=== PATIENT | female | born 1960 | race Caucasian/White ===

== ENCOUNTER 2018-07-11 14:04 | Outpatient (CLI) | payer BC | END 2018-07-11 14:05 | disposition home or self-care (01) | LOC: BICMAMMO 14:04 | PROVIDERS: ATTEND Student in an Organized Health Care Education/Training Program | DX: Z12.31 Encounter for screening mammogram for malignant neoplasm of breast (principal); R92.1 Mammographic calcification found on diagnostic imaging of breast; Z80.3 Family history of malignant neoplasm of breast | CPT/HCPCS: 77063; 77067 ==

== ENCOUNTER 2018-07-17 10:01 | Outpatient (CLI) | payer BC ==
--- NOTE | 2018-07-17 13:38 | MRI ---
MRI CERVICAL SPINE WITHOUT CONTRAST: Comparison: None. History: Left hand numbness and neck pain for six weeks. Technique: Multiplanar, multisequence MRI images were obtained of the cervical spine without contrast . FINDINGS: There is straightening of the normal cervical lordosis. Generalized disc desiccation is seen. Endplat e degenerative changes are seen surrounding the C6-7 intervertebral disc. The visualized cord demonstrates normal signal throughout. The craniocervical junction is unremarkabl e. The prevertebral and paraspinal soft tissues are unremarkable. C2-3: Unremarkable. C3-4: Unremarkable. C4-5: A small disc osteophyte complex is seen. Mild bilateral posterior facet arthrosis. Mild central canal stenosis. Mild bilateral neural foraminal stenosis. C5-6: A moderate disc osteophyte complex is seen. Mild bilateral posterior facet arthrosis. Mild cent ral canal stenosis. Moderate bilateral neural foraminal stenosis. C6-7: A moderate disc osteophyte complex is associated with a superimposed central protrusion. Mild b ilateral posterior facet arthrosis. Moderate central canal stenosis with flattening of the anterior c ord. Mild to moderate bilateral neural foraminal stenosis. C7-T1: Unremarkable. IMPRESSION: Degenerative changes of the cervical spine as above. POS: [facility]
== END 2018-07-17 10:02 | disposition home or self-care (01) ==
LOC: TBSIIMAG 10:01
PROVIDERS: ATTEND Neurological Surgery
DX: M47.22 Other spondylosis with radiculopathy, cervical region (principal)
CPT/HCPCS: 72141

== ENCOUNTER 2018-07-19 13:29 | Outpatient (CLI) | payer BC ==
[2018-07-19 15:23] LABS: Hemoglobin 17.5 g/dL (12.0-16.0); Mean Corpuscular Hemoglobin 32.9 pg (27.0-31.0); Mean Corpuscular Volume 96.6 fL (78.0-98.0); Mean Platelet Volume 7.8 fL (7.4-10.4); Platelet Count 291 thou/uL (130-400); RBC Distribution Width 11.2 % (11.5-14.5); Red Blood Cell (RBC) Count 5.34 mill/uL (4.20-5.40); White Blood Cell (WBC) Count 10.7 thou/uL (4.8-10.8)
[2018-07-19 15:38] LABS: Anion Gap 13 mmol/L (10-20); BUN (Urea Nitrogen) 21 mg/dL (9.8-20.1); Calc. Creatinine Clearance 0 mL/min (70-130); Calcium 9.6 mg/dL (7.8-10.44); Carbon Dioxide 26 mmol/L (22-29); Chloride 101 mmol/L (98-107); Estimated GFR-MDRD 71; Glucose 129 mg/dL (70-105); Potassium 3.8 mmol/L (3.5-5.1); Sodium 136 mmol/L (136-145)
--- NOTE | 2018-07-22 11:53 | EKG ---
Test Reason : Blood Pressure : / mmHG Vent. Rate : 061 BPM Atrial Rate : 061 BPM P-R Int : 166 ms QRS Dur : 092 ms QT Int : 418 ms P-R-T Axes : 014 041 039 degrees QTc Int : 420 ms Normal sinus rhythm RSR' or QR pattern in V1 suggests right ventricular conduction delay Cannot rule out Anterior infarct , age undetermined Abnormal ECG Confirmed by NITIN BALDERRAMA ([id number]) on 07/22/2018 11:53:39 AM Referred By: FREDY Confirmed By:NITIN BALDERRAMA
== END 2018-07-19 13:30 | disposition home or self-care (01) ==
LOC: LABBT 13:29
PROVIDERS: ATTEND Neurological Surgery
DX: Z01.818 Encounter for other preprocedural examination (principal); M54.12 Radiculopathy, cervical region
CPT/HCPCS: 80048; 85027; 93005; 93010

== ENCOUNTER 2018-07-22 06:46 | Day surgery (SDC) | payer BC ==
[2018-07-19 14:02] VITALS: BMI 34.4
[2018-07-22] MEDS ORDERED: CEFAZOLIN 2 GM/50 ML BAG ONE (07:45)
[2018-07-22] MEDS ORDERED: Sodium Chloride 0.9% 10 ML ONE (08:42)
[2018-07-22] MEDS ORDERED: Fentanyl 100 MCG/2 ML VIAL ONE ×3 (08:58→11:10)
--- NOTE | 2018-07-22 10:13 | OP ---
DATE OF PROCEDURE: 07/22/2018 SURGEON: Rigo Barreto M.D. HALL CLEANER: Cesar Redding PA-C PROCEDURE: Anterior cervical discectomy C6-7, interbody arthrodesis, intravertebral biomechanical de vice, local morselized autograft, demineralized bone matrix, anterior titanium instrumentation C6-C7. PROCEDURE IN DETAIL: The patient was brought to the operating room, intubated. She was positioned s upine in modest extension on a gel-filled donut. Incision was made in the right precervical area and dissecting medial to the sternocleidomastoid muscle, identified the anterior cervical spine and our level was confirmed by x-ray. We debrided anterior osteophytes, placed distraction across the disc s paces, and using the operating microscope and microdissection techniques, completely decompressed the C6-7 level from foramen to foramen beneath the posterior longitudinal ligament. The bony endplates were then decorticated for the purpose of arthrodesis and appropriately sized intravertebral biomecha nical PEEK device was brought into the field, filled with demineralized bone matrix and local morseli zed autograft, and tapped into place securely at C6-7. Next, an anterior plate was brought into the field and secured to C6 and C7 using two 14 mm screws at each level. The wound was then extensively irrigated, immaculate hemostasis was secured, and the wound was closed in anatomic layers.
[2018-07-22] MEDS ORDERED: Metoclopramide HCl 10 MG/2 ML VIAL ONE (14:55)
[2018-07-22] MEDS ORDERED: Lidocaine 1% PF 5 ML VIAL ONE (14:55)
[2018-07-22] MEDS ORDERED: Glycopyrrolate 0.2 MG/ML 5 ML SYRINGE ONE (14:55)
[2018-07-22] MEDS ORDERED: Ondansetron PF 4 MG/2 ML Vial ONE (14:55)
[2018-07-22] MEDS ORDERED: Dexamethasone 20 MG/5 ML VIAL ONE (14:55)
[2018-07-22] MEDS ORDERED: PROPOFOL 200 MG/20 ML VIAL ONE (14:55)
[2018-07-22] MEDS ORDERED: Ketorolac Tromethamine 30 MG/ML VIAL ONE (14:55)
== END 2018-07-22 13:15 | disposition home or self-care (01) ==
LOC: SDC 06:46
PROVIDERS: ATTEND Neurological Surgery
PROC: 0RG10A0 Fusion of Cervical Vertebral Joint with Interbody Fusion Device, Anterior Approach, Anterior Column, Open Approach (ICD-10-PCS; principal; 2018-07-22)
DX: M54.12 Radiculopathy, cervical region (principal); E11.9 Type 2 diabetes mellitus without complications; E03.9 Hypothyroidism, unspecified; Z79.899 Other long term (current) drug therapy
CPT/HCPCS: 76001; 96374; C1713; C1776; J0131; J1100; J1885; J2001; J2405; J2704; J2765; J3010; J3490

== ENCOUNTER 2018-07-29 08:31 | Emergency (ER) | payer BC, SELFPAY ==
[2018-07-29 09:47] LABS: #Basophils 0.1 thou/uL (0.0-0.2); #Eosinphils 0.1 thou/uL (0.0-0.7); #Lymphocytes 1.7 thou/uL (1.20-3.40); #Monocytes 0.4 thou/uL (0.11-0.59); %Basophils 0.9 % (0.0-1.0); %Lymphocytes 20.8 % (21.0-51.0); %Monocytes 4.5 % (0.0-10.0); %Neutrophils 72.9 % (42.0-75.0); Hemoglobin 16.7 g/dL (12.0-16.0); Mean Corpuscular HGB CONC 33.6 g/dL (32.0-36.0); Mean Corpuscular Hemoglobin 33.1 pg (27.0-31.0); Mean Corpuscular Volume 98.3 fL (78.0-98.0); Mean Platelet Volume 7.2 fL (7.4-10.4); Platelet Count 263 thou/uL (130-400); Red Blood Cell (RBC) Count 5.06 mill/uL (4.20-5.40); White Blood Cell (WBC) Count 8.3 thou/uL (4.8-10.8)
[2018-07-29 10:12] LABS: ALT (SGPT) 18 U/L (8-55); AST (SGOT) 19 U/L (5-34); Albumin 4.2 g/dL (3.5-5.0); Alkaline Phosphatase 87 U/L (40-150); Anion Gap 16 mmol/L (10-20); BUN (Urea Nitrogen) 7 mg/dL (9.8-20.1); Bilirubin, Total 0.7 mg/dL (0.2-1.2); Calc. Creatinine Clearance 0 mL/min (70-130); Calcium 9.9 mg/dL (7.8-10.44); Carbon Dioxide 24 mmol/L (22-29); Chloride 102 mmol/L (98-107); Estimated GFR-MDRD 82; Globulin 3.9 g/dL (2.4-3.5); Glucose 112 mg/dL (70-105); Potassium 4.2 mmol/L (3.5-5.1); Protein, Total 8.1 g/dL (6.0-8.3); Sodium 138 mmol/L (136-145)
--- NOTE | 2018-07-29 12:24 | CT ---
ORAL CONTRAST SOFT TISSUE NECK CT: HISTORY: The patient is having a lump in throat. One week status post neck surgery. Had disk replacement at C6-C7. The patient had an episode of emesis. The patient has had weight loss. COMPARISON: None. TECHNIQUE: Postcontrast soft tissue neck CT is performed in the axial plane. Reformatted images are submitted f or interpretation. FINDINGS: There is an anterior fusion plate with transvertebral body screw at C6-C7. No evidence of perihardwa re lucency. There is a prosthesis of the C6-C7 disk space. Adequate aeration of the sinuses and mastoid air cells. Bilateral ocular lenses are appropriately located. The left ocular lens appears to be a transplanted lens. Symmetric attenuation of the optic nerve and ocular rectus muscles. Limited evaluation of the oral cavity by dental amalgam artifact. Midline fatty raphae of the tongue is preserved. No obvious masses in the oral cavity. Nasopharynx is unremarkable. Epiglottis has a normal caliber. Preepiglottic fat is preserved. Symmetric attenuation of the carotid and submandibular glands. Diminutive thyroid gland. Symmetric attenuation of the sternocleidomastoid muscles. Grossly, the great vessels of the neck are patent. Upper mediastinum and lung apices are unremarkable. In the prevertebral space, at the level of the C7 and T1 vertebral bodies, there is stranding and ind uration of the fat. A well-defined hypodense collection, compatible with abscess is not appreciated. Stranding of the prevertebral fat may be postoperative. Early infected fluid collection cannot be excluded. Evaluation is limited by beam attenuation artifact. In the anterior right neck soft tissu es, there is stranding of the subcutaneous fat which is presumed to be postoperative. There is a sma ll focus of air attenuation that is just deep to the right sternocleidomastoid muscle. There is asym metric edema and induration of the inferior aspect of the right sternocleidomastoid muscles. A well- defined fluid collection is not appreciated. Postoperative changes versus an early developing area o f infection including phlegmon should be considered. There are varying degrees of central canal stenosis and foraminal narrowing throughout the cervical s pine. There is evidence of moderate to severe central canal stenosis at the C5-C6 level. Varying de grees of foraminal stenosis throughout the cervical spine. Evaluation is limited by technique. Ther e does appear to be significant multilevel foraminal narrowing. IMPRESSION: 1. Abnormal induration of the anterior right paraspinal soft tissues at C7 and T1 which may represen t postoperative change. Phlegmon change/early infected fluid collection cannot be completely exclude d. There is also induration of the anterior right neck subcutaneous fat. There is abnormal attenuat ion deep to the right sternocleidomastoid muscles with a small focus of air. Postoperative changes v ersus a phlegmonas change versus early developing infected fluid collection are all differentiation c onsiderations. Clinical correlation is essential. 2. Varying degrees of significant foraminal narrowing due top degenerative change. There is moderat e to severe central canal stenosis at the C6-C7 level secondary to prominent osteophyte ridges and li gamentum flavum thickening. POS: [facility]
[2018-07-29] MEDS ORDERED: ISOVUE-370 76%-LOCM 1 ML ONE (12:30)
== END 2018-07-29 13:46 | disposition home or self-care (01) ==
LOC: ERS 08:31
DX: R22.1 Localized swelling, mass and lump, neck (principal); E11.9 Type 2 diabetes mellitus without complications; E03.9 Hypothyroidism, unspecified; Z79.84 Long term (current) use of oral hypoglycemic drugs; Z79.899 Other long term (current) drug therapy
CPT/HCPCS: 36415; 70491; 80053; 85025; 85652; 86140; 96360

== ENCOUNTER 2018-09-18 15:35 | Outpatient (CLI) | payer BC ==
--- NOTE | 2018-09-18 18:01 | RAD ---
POSTOPERATIVE RADIOGRAPH 09/18/18 HISTORY: ACDF. AP and lateral views cervical spine obtained. Images demonstrate ACDF with fusion of the C6-7 vertebra using ACDF plates and screws. Disc space hei ght loss is also seen at the C5-6 intervertebral disc space with anterior osteophytes seen at C4-5 an d C5-6. IMPRESSION: Lower cervical ACDF with adjacent areas of cervical spine spondylosis. POS: [facility]
== END 2018-09-18 15:36 | disposition home or self-care (01) ==
LOC: TBSIIMAG 15:35
PROVIDERS: ATTEND Neurological Surgery
DX: M47.22 Other spondylosis with radiculopathy, cervical region (principal); Z98.1 Arthrodesis status
CPT/HCPCS: 72040

== ENCOUNTER 2020-11-26 16:45 | Emergency (ER) | payer BC ==
[~2020-11-26 16:45] MED LIST: Iopamidol-370 76% 500 ML 1 ML ONE
[2020-11-26 19:50] LABS: Hemoglobin 16.5 g/dL (12.0-16.0); Mean Corpuscular HGB CONC 34.5 g/dL (32.0-36.0); Mean Corpuscular Hemoglobin 32.9 pg (27.0-31.0); Mean Corpuscular Volume 95.2 fL (78.0-98.0); Mean Platelet Volume 8.1 fL (7.4-10.4); Platelet Count 158 thou/uL (130-400); RBC Distribution Width 10.8 % (11.5-14.5); Red Blood Cell (RBC) Count 5.04 mill/uL (4.20-5.40); White Blood Cell (WBC) Count 3.4 thou/uL (4.8-10.8)
[2020-11-26 20:11] LABS: ALT (SGPT) 56 U/L (8-55); AST (SGOT) 60 U/L (5-34); Albumin 4.1 g/dL (3.5-5.0); Alkaline Phosphatase 91 U/L (40-110); Anion Gap 16 mmol/L (10-20); BUN (Urea Nitrogen) 8 mg/dL (9.8-20.1); Bilirubin, Total 0.4 mg/dL (0.2-1.2); Calc. Creatinine Clearance 0 mL/min (70-130); Calcium 8.5 mg/dL (7.8-10.44); Carbon Dioxide 25 mmol/L (22-29); Chloride 100 mmol/L (98-107); Globulin 3.9 g/dL (2.4-3.5); Glucose 113 mg/dL (70-105); Potassium 3.7 mmol/L (3.5-5.1); Sodium 137 mmol/L (136-145)
[2020-11-26 20:20] LABS: Band 6 % (5-11); Lymphocytes 42 % (21-51); MDiff Complete? YES; Monocytes 8 % (0-10); Neutrophil 43 % (42-75); Reactive Lymphocytes 1 % (0-10)
[2020-11-26] MEDS ORDERED: Lidocaine Viscous Sol 2% 15 ml UD Cup ONE (21:42)
[2020-11-26] MEDS ORDERED: Mag-Al 1200 mg/1200 mg/30 ML UDCUP ONE (21:42)
[2020-11-26] MEDS ORDERED: Acetaminophen 500 MG TAB ONE (21:42)
[2020-11-26 21:58] LABS: CK (CPK) 123 U/L (29-168); Lipase 41 U/L (8-78)
[2020-11-26 22:13] LABS: Bilirubin Negative (Negative); Blood, Urine Negative (Negative); Clarity Clear (Clear); Glucose, Urine (Dipstick) Greater than 1000 mg/dL (Negative); Ketone, Urine 80 mg/dL (Negative); Leukocyte 250 Leu/uL (Negative); Nitrite Negative (Negative); Protein, Urine (Dipstick) 30 mg/dL (Neg-Trace); RBC/HPF 0-3 HPF (0-3); Specific Gravity, Urine 1.035 (1.002-1.036); Urobilinogen Normal mg/dL (Less than 2); WBC/HPF 21-50 HPF (0-3); pH, Urine 5.5 (5.0-9.0)
[2020-11-26 22:14] LABS: Bacteria/HPF 1+ HPF (None Seen)
== END 2020-11-26 23:43 | disposition home or self-care (01) ==
LOC: ERS 16:45
DX: J18.9 Pneumonia, unspecified organism (principal); K52.9 Noninfective gastroenteritis and colitis, unspecified; E11.9 Type 2 diabetes mellitus without complications; E03.9 Hypothyroidism, unspecified; Z79.899 Other long term (current) drug therapy
CPT/HCPCS: 36415; 71045; 71275; 74177; 80053; 81003; 81015; 82550; 83690; 84484; 85025; 87086; 93005; Q9967

== ENCOUNTER 2020-12-23 09:09 | Outpatient (CLI) | payer BC | END 2020-12-23 09:10 | disposition home or self-care (01) | LOC: BICRAD 09:09 | PROVIDERS: ATTEND Internal Medicine Pulmonary Disease | DX: R06.00 Dyspnea, unspecified (principal) | CPT/HCPCS: 71046 ==

== ENCOUNTER 2020-12-24 07:30 | Outpatient (CLI) | payer BC ==
[2020-12-24] MEDS ORDERED: Iopamidol-370 76% 500 ML 1 ML ONE (12:02)
== END 2020-12-24 07:31 | disposition home or self-care (01) ==
LOC: BICCT 07:30
PROVIDERS: ATTEND Physician Assistant Medical
DX: K21.9 Gastro-esophageal reflux disease without esophagitis (principal); K52.9 Noninfective gastroenteritis and colitis, unspecified; R93.3 Abnormal findings on diagnostic imaging of other parts of digestive tract; K63.89 Other specified diseases of intestine; Z98.84 Bariatric surgery status
CPT/HCPCS: 74178; Q9967

== ENCOUNTER 2021-01-19 08:25 | Outpatient (CLI) | payer BC | END 2021-01-19 08:26 | disposition home or self-care (01) | LOC: BICULT 08:25 | PROVIDERS: ATTEND Internal Medicine Gastroenterology | DX: R94.5 Abnormal results of liver function studies (principal) | CPT/HCPCS: 76705 ==

== ENCOUNTER 2021-03-28 08:01 | Day surgery (SDC) | payer BC ==
[2021-03-25 13:28] VITALS: BMI 34.8
[2021-03-28 08:03] LABS: #Basophils 0.1 thou/uL (0.0-0.2); #Eosinphils 0.1 thou/uL (0.0-0.7); #Lymphocytes 3.3 thou/uL (1.20-3.40); #Monocytes 0.5 thou/uL (0.11-0.59); #Neutrophils 2.7 thou/uL (1.40-6.50); %Basophils 1.2 % (0.0-1.0); %Lymphocytes 49.1 % (21.0-51.0); %Monocytes 7.4 % (0.0-10.0); %Neutrophils 40.3 % (42.0-75.0); Hemoglobin 17.3 g/dL (12.0-16.0); Mean Corpuscular HGB CONC 33.5 g/dL (32.0-36.0); Mean Corpuscular Hemoglobin 32.7 pg (27.0-31.0); Mean Corpuscular Volume 97.6 fL (78.0-98.0); Mean Platelet Volume 7.8 fL (7.4-10.4); Platelet Count 242 thou/uL (130-400); RBC Distribution Width 11.1 % (11.5-14.5); White Blood Cell (WBC) Count 6.6 thou/uL (4.8-10.8)
[2021-03-28 08:14] LABS: INR-International Normal Ratio 0.9; Prothrombin Time 12.6 sec (12.0-14.7)
[2021-03-28 08:15] LABS: PTT 27.8 sec (22.9-36.1)
[2021-03-28] MEDS ORDERED: Sodium Bicarbonate 2.5 MEQ/5 ML VIAL ONE (08:50)
[2021-03-28] MEDS ORDERED: Lidocaine 1% PF 5 ML VIAL ONE (08:50)
[2021-03-28] MEDS ORDERED: Acetaminophen 500 MG TAB ONE (09:39)
[2021-03-28 09:51] VITALS: BP 140/85; TEMP 97.8
== END 2021-03-28 10:37 | disposition home or self-care (01) ==
LOC: ULT 08:01
PROVIDERS: ATTEND Physician Assistant Medical
PROC: 0FB23ZX Excision of Left Lobe Liver, Percutaneous Approach, Diagnostic (ICD-10-PCS; principal; 2021-03-28)
DX: K76.0 Fatty (change of) liver, not elsewhere classified (principal); K75.9 Inflammatory liver disease, unspecified; R76.8 Other specified abnormal immunological findings in serum; R89.4 Abnormal immunological findings in specimens from other organs, systems and tissues; L65.0 Telogen effluvium; E11.9 Type 2 diabetes mellitus without complications; K21.9 Gastro-esophageal reflux disease without esophagitis; E03.9 Hypothyroidism, unspecified; Z79.899 Other long term (current) drug therapy; Z88.2 Allergy status to sulfonamides
CPT/HCPCS: 47000; 76942; 85025; 85610; 85730; 88307; 88313

== ENCOUNTER 2023-08-24 09:16 | Outpatient (CLI) | payer BC | END 2023-08-24 09:17 | disposition home or self-care (01) | LOC: BICMRI 09:16 | PROVIDERS: ATTEND Neurological Surgery | DX: M47.22 Other spondylosis with radiculopathy, cervical region (principal); M25.511 Pain in right shoulder; M75.51 Bursitis of right shoulder; Z98.890 Other specified postprocedural states | CPT/HCPCS: 72040; 72141 ==

== ENCOUNTER → 2024-09-23 | Day surgery (SDC) | payer BC ==
[~2024-09-23] MED LIST changes: +Gadobenate Dimeglumine 2 ML, Sodium Chloride 0.9% 250 ML 10 ML, Iopamidol 8 ML, Lidocai... FS SCH; -Iopamidol-370 76% 500 ML 1 ML ONE; +Sodium Bicarbonate 2.5 MEQ/5 ML SDV ONE
== END ==
LOC: RAD 12:01
PROVIDERS: ATTEND Orthopaedic Surgery
PROC: BP38YZZ Magnetic Resonance Imaging (MRI) of Right Shoulder using Other Contrast (ICD-10-PCS; principal; 2024-09-23)
DX: S46.011A Strain of muscle(s) and tendon(s) of the rotator cuff of right shoulder, initial encounter (principal); Z88.2 Allergy status to sulfonamides; X58.XXXA Exposure to other specified factors, initial encounter
CPT/HCPCS: 23350; 77002; A9577; J0171; J7050; Q9967